=== PATIENT | female | born 2000 | race Caucasian/White ===

== ENCOUNTER 2020-10-10 15:35 | Emergency (ER) | payer OTHER ==
[~2020-10-10] VITALS: Ht 175.3 cm; Wt 92.0 kg
--- NOTE | 2020-10-10 16:56 | PHYS DOC ---
Past History Past Medical History: Anxiety Past Surgical History: Appendectomy Alcohol Use: Rarely General Adult EDM: Chief Complaint: CHEST PAIN HPI: HPI: Patient is a 19-year-old female coming in for approximately 20 hours of chest pain. Patient states that the pain initially started in substernal area and then radiated around the lower area of her ribs towards her bilateral flanks. Patient says the pain is crampy. Says the pain is almost gone now. Received her Covid vaccine yesterday. Took Tylenol this morning. No vomiting, diarrhea, lightheadedness, diaphoresis. Patient denies any cough or fevers. Pain is not changed with p.o. intake. Review of Systems: Review of Systems: All other systems within normal limits except for as noted in the HPI Allergies: Allergies: Allergies Coded Allergies Type Severity Reaction Last Updated Verified No Known Drug Allergies 10/10/20 No Physical Exam: PE: Constitutional: Well developed, well nourished, no acute distress, non-toxic appearance. [] HENT: Normocephalic, atraumatic, bilateral external ears normal, nose normal. [] Eyes: PERRLA, conjunctiva normal, no discharge. [] Neck: No rigidity, supple, no stridor. [] Cardiovascular: Regular rate and rhythm, brisk cap refill [] Lungs & Thorax: Non labored symmetric respirations, no tachypnea or respiratory distress. Bilateral breath sounds clear to auscultation [] Abdomen: Soft, nondistended. Skin: Warm, dry, no erythema, no rash. [] Back: Unremarkable Extremities: No deformities, range of motion grossly intact, no lower extremity edema [] Neurologic: Alert and oriented X 3, no focal deficits noted. [] Psychologic: Affect normal, judgement normal, mood normal. [] Current Patient Data: Vital Signs: Vital Signs Date Time Temp Pulse Resp B/P (MAP) Pulse Ox O2 Delivery O2 Flow Rate FiO2 10/10/20 16:01 97.8 105 16 130/79 (96) 97 Room Air EKG: EKG: Sinus rhythm, heart rate 100 bpm, normal axis, no ST elevation or depression. T waves unremarkable [] Radiology/Procedures: Radiology/Procedures: [] Heart Score: C/O Chest Pain: Yes HEART Score for Chest Pain: HEART Score for Chest Pain Response (Comments) Value History Slighlty/Non-Suspicious 0 ECG Normal 0 Age < 45 0 Risk Factors No Risk Factors 0 Troponin < Normal Limit 0 Total 0 Risk Factors: Risk Factors: DM, Current or recent (<one month) smoker, HTN, HLP, family history of CAD, obesity. Risk Scores: Score 0 - 3: 2.5% MACE over next 6 weeks - Discharge Home Score 4 - 6: 20.3% MACE over next 6 weeks - Admit for Clinical Observation Score 7 - 10: 72.7% MACE over next 6 weeks - Early Invasive Strategies Course & Med Decision Making: Course & Med Decision Making Pertinent Labs and Imaging studies reviewed. (See chart for details) [] Dragon Disclaimer: Dragon Disclaimer: This electronic medical record was generated, in whole or in part, using a voice recognition dictation system. Departure Departure: Impression: Primary Impression: Chest pain Disposition: HOME / SELF CARE / HOMELESS Condition: STABLE Referrals: PCP,UNKNOWN (PCP) Patient Instructions: Chest Pain (Nonspecific) ZEINAB MAYA MD Oct 10, 2020 16:56
[2020-10-10 17:03] LABS: BASO # 0.1 x10^3/uL (0.0-0.2); BASO % 1 % (0-3); EOS # 0.1 x10^3/uL (0.0-0.7); EOS % 2 % (0-3); HEMATOCRIT 39.2 % (36.0-47.0); HEMOGLOBIN 13.3 g/dL (12.0-15.5); LYMPH # 2.2 x10^3/uL (1.0-4.8); LYMPH % 25 % (24-48); MEAN CORPUSCULAR HEMOGLOBIN 28 pg (25-35); MEAN CORPUSCULAR HGB CONC 34 g/dL (31-37); MEAN CORPUSCULAR VOLUME 82 fL (79-100); MONO % 11 % (0-9); NEUT # 5.5 x10^3uL (1.8-7.7); NEUT % 62 % (31-73); PLATELET COUNT 250 x10^3/uL (140-400); RED CELL DISTRIBUTION WIDTH 13.4 % (11.5-14.5); WHITE BLOOD COUNT 8.9 x10^3/uL (4.0-11.0)
--- NOTE | 2020-10-10 17:05 | EKG ---
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
[2020-10-10 17:07] LABS: GFR 70.7; POTASSIUM 3.7 mmol/L (3.5-5.1)
--- NOTE | 2020-10-10 17:07 | RAD ---
EXAM: Chest, 2 views. HISTORY: Chest pain. COMPARISON: None. FINDINGS: 2 views of the chest are obtained. There is no infiltrate, pleural effusion or pneumothorax . The heart is normal in size IMPRESSION: No acute pulmonary finding. Electronically signed by: Andreina Olguin MD (10/10/2020 5:05 PM) [facility]
[2020-10-10 17:12] LABS: ALBUMIN 3.8 g/dL (3.4-5.0); ALBUMIN/GLOBULIN RATIO 0.9 (1.0-1.7); PHOSPHORUS 3.8 mg/dL (2.6-4.7); TOTAL BILIRUBIN 0.4 mg/dL (0.2-1.0)
[2020-10-10] MEDS ORDERED: IOHEXOL 350 MG/ML 100 ML VIAL. IV ONE (17:30)
--- NOTE | 2020-10-10 18:02 | RAD ---
EXAM: CT angiography of the chest with intravenous contrast. HISTORY: Chest pain. TECHNIQUE: Computed tomographic images of the chest were obtained following the administration of int ravenous contrast according to angiography protocol. Multiplanar reformatting was performed and three dimensional maximum intensity projection images were obtained. *One or more of the following individualized dose reduction techniques were utilized for this examina tion: 1. Automated exposure control. 2. Adjustment of the mA and/or kV according to patient size. 3. Use of iterative reconstruction technique. COMPARISON: None. FINDINGS: There is no evidence of pulmonary embolism. There is no aortic aneurysm or dissection. Ther e is increased soft tissue within the anterior mediastinum due to residual thymus. This is within acc eptable limits for patient age. There is no lymphadenopathy. There is no pneumothorax or pleural effu claire. There is mild posterior dependent atelectasis. There is no infiltrate or suspicious pulmonary n odule. There is no acute finding involving the upper abdomen or osseous structures. IMPRESSION: No evidence of pulmonary embolism or alternative acute thoracic finding. Electronically signed by: Andreina Olguin MD (10/10/2020 6:00 PM) [facility]
[2020-10-10 18:23] VITALS: BP 126/67
== END 2020-10-10 18:20 | disposition home or self-care (01) ==
LOC: ER 15:35
DX: R07.89 Other chest pain (principal)
CPT/HCPCS: 36415; 71046; 71275; 80053; 83690; 84100; 84484; 85025; 85379; 93005; 99285; Q9967